=== PATIENT | female | born 1940 | race Caucasian/White ===

== ENCOUNTER → 2017-02-04 | Outpatient (CLI) | payer OTHER ==
[~2017-02-04] MED LIST: HYDROCODON-ACE1 EAC7 PO; LEVOXYL75 MCG PO; SOLU-MEDRO1000 MG/1 IV; VITAMIN D 5050000 I1 PO
== END ==
LOC: PUL 07:36
DX: M34.9 Systemic sclerosis, unspecified (principal)

== ENCOUNTER → 2017-05-29 | Outpatient (CLI) | payer OTHER | LOC: ULTRA 10:14 | DX: I26.99 Other pulmonary embolism without acute cor pulmonale (principal) ==